=== PATIENT | female | born 1970 | race Caucasian/White ===

== ENCOUNTER 2018-08-31 18:04 | Emergency (ER) | payer BC ==
[~2018-08-31] VITALS: Ht 160 cm; Wt 65.0 kg
[2018-08-31] MEDS ORDERED: MORPHINE SULFATE 10 MG/ML CPJ IM ONE (20:15)
[2018-08-31] MEDS ORDERED: KETOROLAC 30MG/ML VIAL IM ONE (20:15)
[2018-09-01 00:02] VITALS: BP 127/78
== END 2018-09-01 00:03 | disposition home or self-care (01) ==
LOC: ER 18:04
DX: S32.2XXA Fracture of coccyx, initial encounter for closed fracture (principal); I10 Essential (primary) hypertension; W01.0XXA Fall on same level from slipping, tripping and stumbling without subsequent striking against object, initial encounter; Y93.89 Activity, other specified; Y92.89 Other specified places as the place of occurrence of the external cause; Y99.8 Other external cause status
CPT/HCPCS: 72220; 96372; 99284; J1885; J2270; Z7610